=== PATIENT | male | born 1965 | race Caucasian/White ===

== ENCOUNTER 2019-03-19 09:45 | Emergency (ER) | payer OTHER ==
[~2019-03-19] VITALS: Ht 177.8 cm; Wt 131.5 kg
--- NOTE | 2019-03-19 09:58 | NUR ---
Dr Chinchilla at the bedside for MSE.
[2019-03-19] MEDS ORDERED: HYDROMORPHONE 1 MG/1 ML DISP.SYRIN ONE (10:08)
[2019-03-19] MEDS ORDERED: ONDANSETRON 4 MG/2 ML VIAL ONE (10:08)
[2019-03-19 10:14] VITALS: BP 120/70
[2019-03-19] MEDS ORDERED: HYDROMORPHONE 1 MG/1 ML DISP.SYRIN IM ONE (10:15)
[2019-03-19] MEDS ORDERED: ONDANSETRON 4 MG/2 ML VIAL IM ONE (10:15)
--- NOTE | 2019-03-19 10:41 | NUR ---
Patient discharged to home in stable conditon. Written and verbal after care instructions given. Patient verbalizes understanding of instructions. Pt left ER w/ steady gait, accompained by .
== END 2019-03-19 10:41 | disposition home or self-care (01) ==
LOC: ER 09:45
DX: M54.42 Lumbago with sciatica, left side (principal)
CPT/HCPCS: 96372 ×2; 99283; J1170; J2405; A4663

== ENCOUNTER 2019-03-20 20:20 | Emergency (ER) | payer OTHER ==
[~2019-03-20] VITALS: Ht 177.8 cm; Wt 131.5 kg
[2019-03-20] MEDS ORDERED: ONDANSETRON 4 MG/2 ML VIAL IM ONE (21:30)
[2019-03-20] MEDS ORDERED: HYDROMORPHONE 1 MG/1 ML DISP.SYRIN IM ONE (21:30)
[2019-03-20] MEDS ORDERED: ONDANSETRON 4 MG/2 ML VIAL ONE (21:32)
[2019-03-20] MEDS ORDERED: HYDROMORPHONE 2 MG/1 ML DISP.SYRIN ONE (21:32)
--- NOTE | 2019-03-20 21:50 | NUR ---
PT ABLE TO TOLERATE IM MEDS ORDERED PN AT 8-02/24 TO [facility]RONIC LBP DENIES PARESTHESIAS NOR RADICULOPATHIES TO LE DENIES CHANGES IN B/B FUNCTION PT IS ABLE TO WALK WITH STABLE GAIT
--- NOTE | 2019-03-20 22:06 | NUR ---
Patient discharged to home in stable conditon. Written and verbal after care instructions given. Patient verbalizes understanding of instructions. AMBULATORY W/ STABLE GAIT ALL BELONGINGS W/ PT
[2019-03-21 00:52] VITALS: BP 104/60
== END 2019-03-20 22:10 | disposition home or self-care (01) ==
LOC: ER 20:21
DX: M54.40 Lumbago with sciatica, unspecified side (principal); G89.29 Other chronic pain; Z87.891 Personal history of nicotine dependence
CPT/HCPCS: 96372 ×2; 99283; J1170; J2405; A4663

== ENCOUNTER 2019-03-26 11:14 | Emergency (ER) | payer OTHER ==
[~2019-03-26] VITALS: Ht 177.8 cm; Wt 131.5 kg
[2019-03-26] MEDS ORDERED: HYDROMORPHONE 1 MG/1 ML DISP.SYRIN IM ONE (12:15)
[2019-03-26] MEDS ORDERED: HYDROMORPHONE 2 MG/1 ML DISP.SYRIN ONE (12:21)
--- NOTE | 2019-03-26 12:35 | NUR ---
PT WAS EVALUATED BY DR POND. PT WAS D/C'd TO HOME. D/C INSTRUCTIONS GIVEN TO THE PT.
[2019-03-26 12:36] VITALS: BP 136/78
== END 2019-03-26 12:40 | disposition home or self-care (01) ==
LOC: ER 11:14
DX: M54.17 Radiculopathy, lumbosacral region (principal); G89.29 Other chronic pain; M54.5 Low back pain; M54.6 Pain in thoracic spine; Z87.891 Personal history of nicotine dependence
CPT/HCPCS: 96372; 99283; J1170; A4663

== ENCOUNTER 2019-05-04 23:45 | Emergency (ER) | payer OTHER ==
[~2019-05-04] VITALS: Ht 177.8 cm; Wt 132.9 kg
--- NOTE | 2019-05-05 00:03 | NUR ---
PT PREFERS TO STAND. STATES: "I [REFER TO STAND BECAUSE OF THE PAIN" DENIES CHANGES IN B/B FUNCTION MD AT BEDSIDE FOR HX AND PHYSICAL
[2019-05-05] MEDS ORDERED: HYDROMORPHONE 2 MG/1 ML DISP.SYRIN ONE (00:11)
[2019-05-05] MEDS ORDERED: ONDANSETRON 4 MG/2 ML VIAL ONE (00:11)
[2019-05-05] MEDS ORDERED: ONDANSETRON 4 MG/2 ML VIAL IM ONE (00:15)
[2019-05-05] MEDS ORDERED: HYDROMORPHONE 1 MG/1 ML DISP.SYRIN IM ONE (00:15)
--- NOTE | 2019-05-05 00:52 | NUR ---
Patient discharged to home in stable conditon. Written and verbal after care instructions given. Patient verbalizes understanding of instructions. AMBULATORY W/ STABLE GAIT ALL BELONGINGS W/ PT INSTRUCTED NOT TO DRIVE, PT STATES HE WILL TAKE UBER
[2019-05-05 00:54] VITALS: BP 114/66
== END 2019-05-05 00:54 | disposition home or self-care (01) ==
LOC: ER 23:47
DX: M54.5 Low back pain (principal); Z87.891 Personal history of nicotine dependence
CPT/HCPCS: 96372 ×2; 99283; J1170; J2405; A4663

== ENCOUNTER 2019-05-05 17:37 | Emergency (ER) | payer OTHER ==
[~2019-05-05] VITALS: Ht 177.8 cm; Wt 132.9 kg
[2019-05-05] MEDS ORDERED: HYDROMORPHONE 1 MG/1 ML DISP.SYRIN ONE (18:06)
[2019-05-05] MEDS ORDERED: HYDROMORPHONE 1 MG/1 ML DISP.SYRIN IM ONE ×2 (18:15→18:45)
[2019-05-05] MEDS ORDERED: ONDANSETRON 4 MG/2 ML VIAL ONE (18:36)
[2019-05-05] MEDS ORDERED: HYDROMORPHONE 2 MG/1 ML DISP.SYRIN ONE (18:36)
--- NOTE | 2019-05-05 18:40 | NUR ---
PATIENT WAS SEEN BY MD. FIRST DOSE OF DILAUDID "DID NOT HELP" PER PATIENT STATEMENT. PATIENT STATES HE HAS HAD BACK PAIN FOR 30 YEARS AND HAS "HIGH TOLERANCE". DR ANDREWS ORDERED SECOND DOSE. PATIENT STATES HE DID NOT DRIVE HERE AND HAS A RIDE BACK AND UNDERSTANDS ALL DANGERS OF HIGH NARCOTIC DOSAGES. DC, RX (INCLUDING ALL PRECAUTIONS) AND FOLLOW UP INSTRUCTIONS GIVEN AND EXPLAINED TO PATIENT WHO STATES SHE UNDERSTAND ALL INSTRUCTIONS.
[2019-05-05] MEDS ORDERED: ONDANSETRON 4 MG/2 ML VIAL IM ONE (18:45)
== END 2019-05-05 18:49 | disposition home or self-care (01) ==
LOC: ER 17:41
DX: G89.29 Other chronic pain (principal); M54.5 Low back pain; Z87.891 Personal history of nicotine dependence
CPT/HCPCS: 96372 ×3; 99283; J1170 ×2; J2405; A4663